=== PATIENT | female | born 2005 | race Caucasian/White ===

== ENCOUNTER 2025-01-18 10:51 | Emergency (ER) | payer OTHER, SELFPAY ==
[2025-01-18 11:01] VITALS: BP 134/71; PULSE 105; RESP 16; TEMP 36.9; O2SAT 97
--- NOTE | 2025-01-18 11:40 | ED.URI ---
HPI - URI/Sore Throat General Chief Complaint: Upper Respiratory Infection Stated Complaint: fever, GALE Time Seen by Provider: 01/18/25 11:16 History of Present Illness HPI Narrative: 19-year-old female with no past medical history presents to the emergency department for URI symptoms and headache minimally for the past week. Patient states 1 week ago she had ?COVID symptoms? which reportedly consisted of sore throat, body aches, chills, fever. She states her symptoms resolved at the end of last until she developed a headache that lasted for 1 day and self-resolved. She states over the past day her headache and fever has returned. States she woke up this morning with 101 degree fever but is not taking any antiemetics or pain medications prior to arrival. She states that headache is in the front of her head. She denies head injury trauma, vision changes, focal numbness or weakness. She is reporting associated photophobia and nausea. She is endorsing body aches but states her sore throat resolved. Denies cough, urinary symptoms or concern for . Related Data Allergies Allergy/AdvReac Type Severity Reaction Status Date / Time No Known Allergies Allergy Verified 01/18/25 11:50 Review of Systems Review of Systems: All systems reviewed & are unremarkable except as noted in HPI and below Exam Narrative: GENERAL: Well-appearing, well-nourished, and in no acute distress. HEAD: Normocephalic, atraumatic. EYES: PERRLA and EOMI. ENT: Nares clear, no rhinorrhea or epistaxis. Mucous membranes moist. Bilateral TMs are elena nonbulging with normal canals. Posterior pharynx without erythema or edema, no tonsillar hypertrophy or exudates. No dysphonia. No trismus. Patient tolerating secretions. NECK: Supple. No nuchal rigidity CHEST: Clear to auscultation. No respiratory distress. HEART: Regular rate and rhythm. No murmur heard. Normal peripheral pulses. ABDOMEN: Soft, nontender, nondistended, normal active bowel sounds. EXTREMITIES: Normal range of motion. No edema. SKIN: Warm, dry, no rash. NEURO: No focal deficits. Alert and oriented x4. Cranial nerves 2-12 intact. Strength 5/5 in BUE and BLE. Sensation intact throughout. Normal [id number]. No pronator drift. Course Vital Signs Vital signs: Vital Signs Temperature 98.4 F 01/18/25 11:01 Pulse Rate 105 H 01/18/25 11:01 Respiratory Rate 16 01/18/25 11:01 Blood Pressure 134/71 01/18/25 11:01 Pulse Oximetry 97 01/18/25 11:01 Oxygen Delivery Room Air 01/18/25 11:01 Temperature 98.4 F 01/18/25 11:01 Pulse Rate 105 H 01/18/25 11:01 Respiratory Rate 16 01/18/25 11:01 Blood Pressure 134/71 01/18/25 11:01 Pulse Oximetry 97 01/18/25 11:01 Oxygen Delivery Room Air 01/18/25 11:32 MDM - URI/Sore Throat MDM Narrative Medical decision making narrative: 19-year-old female with no past medical history presents emergency department for intermittent URI symptoms and headaches over the past week. See HPI for further history. The patient states she had a fever 101 this morning but has not taken any antiemetics or pain medications. On arrival she is afebrile. She has a mild tachycardia 105. She is nontoxic appearing. No meningismus signs. She is neurovascularly intact without focal deficits. Given patient has been urgent care had negative viral swabs, I did offer to obtain lab work and provide IV fluids. Patient politely declined and states she does not want an IV at this time. She would like to start with oral medications. Will also repeat viral testing as well. COVID, flu RSV are negative. Patient received IM Toradol, Tylenol, Compazine and Benadryl with improvement. She is tolerating p.o. intake and resting comfortably. Will discharge her home with PCP follow-up. I did discuss strict ED return precautions. She is agreeable with the plan verbalized understanding. Discharged in stable condition. Lab Data Labs: Lab Results 01/18/25 Range/Units 11:44 Influenza A (RT-PCR) Negative (Negative) Influenza B (RT-PCR) Negative (Negative) RSV (RT-PCR) Negative (Negative) SARS-CoV-2 RNA (RT-PCR) Negative (Negative) Discharge Plan Discharge Clinical Impression: Upper respiratory infection Qualifiers: URI type: unspecified viral URI Qualified Code(s): J06.9 - Acute upper respiratory infection, unspecified Headache Qualifiers: Headache type: unspecified Headache chronicity pattern: acute headache Intractability: not intractable Qualified Code(s): R51.9 - Headache, unspecified Patient Disposition: Home Condition: Stable Instructions: Antibiotic Form, Upper Respiratory Infection (DC), Acute Headache (DC) Additional Instructions: You tested negative for COVID, flu RSV. Please make sure to take Tylenol ibuprofen as needed for headaches, drink plenty fluids including water, Gatorade and Pedialyte. Follow-up closely with primary care provider and referred you to. Return to the emergency department if you develop new or worsening symptoms. Patient Language: Belarusian Prescriptions: New acetaminophen 500 mg capsule 500 mg PO Q6H PRN (Reason: pain) Qty: 14 0RF ibuprofen 800 mg tablet 800 mg PO TID PRN (Reason: pain) Qty: 20 0RF Follow-up/Referrals: Atul Hernandez MD [Physician] - PHYSICIAN NOT ON STAFF,NONSTAFF [Non-Staff] -
[2025-01-18] MEDS: ACETAMINOPHEN 500 MG TABLET 1000 MG PO (11:51)
[2025-01-18] MEDS: diphenhydrAMINE HCl CAP 25 MG CAPSULE PO (11:52)
[2025-01-18] MEDS: KETOROLAC 30 MG/ML VIAL (*BKC) IM (11:55)
--- OUTSIDE RECORDS SUMMARY | 2025-01-18 12:10 | XMS_ITS | Clinical Summary ---
Author Organization [address] [address] Care Team Providers Care Technical Spec Name Role Phone Unknown, Notinfile Primary Care Provider Unavail able Allergies No known active allergies Medications No known medications Active Problems No known active problems Encounters Date Type Department Care Team Description 01/16/2025 6:15 PM CDT Office Visit [facility] at [address] [address] Norah Galarza NP Acute viral syndrome (Primary Dx); Acute nonintractable headache, unspecified headache type from Last 3 Months Social History Tobacco Use Types Packs/Day Years Used Date Smoking Tobacco: Never Assessed Comments Unknown Sex and Gender Information Value Date Recorded Sex Assigned at Not on file Legal Sex Female 2:37 PM CDT Gender Identity Not on file Sexual Orientation Not on file Last Filed Vital Signs Vital Sign Reading Time Taken Comments Blood Pressure 139/88 01/16/2025 5:15 PM CDT Pulse 66 01/16/2025 5:15 PM CDT Temperature 37 C (98.6 F) 01/16/2025 5:15 PM CDT Respiratory Rate 20 01/16/2025 5:15 PM CDT Oxygen Saturation 99% 01/16/2025 5:15 PM CDT Inhaled Oxygen Concentration - - Weight 102.7 kg (226 lb 6.4 oz) 01/16/2025 5:15 PM CDT Height - - Body Mass Index - - Plan of Treatment Health Maintenance Due Date Last Done Comments Cervical Cancer Screening 2003 Depression Screening 2003 Hepatitis C Screening 2003 HPV Vaccines (1 - 3-dose series) 2018 Regular Well Visit/Exam 18-64 2021 Meningococcal B Vaccine (2 o f 2 - Bexsero SCDM 2-dose series) 08/04/2022 02/01/2022 Influenza Vaccine (#1) 2025 06/10/2012 DTaP/Tdap/Td Vaccine (7 - Td or Tdap) 02/02/2032 02/01/2022, 04/30/2007, 11/22/2005, Additional history exists Hepatitis B Screening Completed 2003 , 2003, 2003, Additional history exists Pneumococcal vaccine <65 Completed 005, 04/27/2004, 2003, Additional history exists Varicella Vaccines Completed 09/04/2007, 04/27/2004 Meningococcal Vaccine Completed 2021 Procedures Procedure Name Priority Date/Time Associated Diagnosis Comments POC INFLUENZA A/B, COVID-19 ANTIGEN Routine 01/16/2025 5:32 PM CDT Acute viral syndrome from Last 3 Months Results * POC Influenza A/B, COVID-19 antigen (01/16/2025 5:32 PM CDT) Influenza A Ag, POC Negative Negative [facility] Influenza B Ag, POC Negative Negative [facility] COVID-19 Ag POC Presumptive Negative Presumptive Negative, Invalid [facility] Nasal 01/16/2025 5:32 PM CDT Norah Galarza NP POINT OF CARE TEST ORDERAB LES Final Result [facility] [address] [place] [address] from Last 3 Months Insurance [employer] [facility] CLAIMS Care Teams Technical Spec Relationship Specialty Start Date End Date Unknown, Notinfile PCP - General 01/16/25
--- OUTSIDE RECORDS SUMMARY | 2025-01-18 12:10 | XMS_ITS | Referral Summary ---
Author Organization [address] [address] Care Team Providers Care Underwriting Clerk Name Role Phone Unknown, Notinfile Primary Care Provider Unavail able Encounters Date Type Department Care Team Description 01/16/2025 6:15 PM CDT Office Visit [facility] at [address] [address] Norah Galarza NP Acute viral syndrome (Primary Dx); Acute nonintractable headache, unspecified headache type from Last 3 Months Allergies No known active allergies Medications No known medications Active Problems No known active problems Social History Tobacco Use Types Packs/Day Years [...] Mass Index - - Plan of Treatment Not on file Procedures Procedure Name Priority Date/Time Associated Diagnosis Comments POC INFLUENZA A/B, COVID-19 ANTIGEN Routine 01/16/2025 5:32 PM CDT Acute viral syndrome from Last 3 Months Results * POC Influenza A/B, COVID-19 antigen (01/16/2025 5:32 PM CDT) Influenza A Ag, POC Negative Negative [facility] Influenza B Ag, POC Negative Negative [facility] COVID-19 Ag POC Presumptive Negative Presumptive Negative, Invalid [facility] Nasal 01/16/2025 5:32 PM CDT Norah Galarza PLATFORM SUPERVISOR POINT OF CARE TEST ORDERAB LES Final Result [facility] [place] [address], [facility] from Last 3 Months Insurance [employer] [facility] CLAIMS Care Teams Underwriting Clerk Relationship Specialty Start Date End Date Unknown, Notinfile PCP - General 01/16/25
--- OUTSIDE RECORDS SUMMARY | 2025-01-18 12:10 | XMS_ITS | Clinical Summary ---
Author Organization [facility] Address [address] [place] [address] Phone Care Team Providers Care Emulsion Coater Name Role Phone Jorge Lomeli MD Primary Care Provider [phone] Allergies No known active allergies Medications Selenium Sulfide 2.25 % Shampoo 1 application on the skin as directed PRN Active montelukast (SINGULAIR) 10 MG Tablet Take 1 Tablet by mouth every evening. 90 Tablet 1 2 Active fluticasone (Flovent HFA) 110 MCG/ACT Aerosol take 2 Puffs by inhalation 2 times daily. 1 g 1 2 Active Ventolin HFA 108 (90 Base) MCG/ACT Aerosol Solution take 2 Puffs by inhalation every 4 hours as needed for Wheezing or Cough. 1 g 2 Active Active Problems No known active problems Resolved Problems Problem Noted Date Diagnosed Date Resolved Date Acute bronchitis 10/09/2020 Acute bilateral otitis media 10/09/2020 URI, acute 10/09/2020 Pharyngitis 10/09/2020 Sinusitis 10/09/2020 Sprain of right ankle 2020 Immunizations Immunization Administration Dates Next Due DTAP VACCINE 04/30/2007, 6,11/06/2004,09/01,2003 HIB Vaccine (PRP-T) 04/27/2004,2003,2003 Hepatitis A Vaccine 04/30/2007 Hepatitis B Vaccine 2003, 4,2003,04/25 Inactivated Polio Vaccine 04/30/2007,07/2003,2003,07/04 Influenza Vaccine greater than 3 yrs 06/10/2012 Influenza, Seasonal, Injecta ble, Undefined 06/10/2012 MMR Vaccine 04/30/2007,04/27/2004 Meningococcal Group B OMV 02/01/2022 Meningococcal Vaccine 2021 Pneumococcal Vaccine Peds - 7 Valent ,04/27/2004,2003,07/04 TB Skin Test 12/19/2020 TDAP Vaccine 02/01/2022 Varicella Vaccine Live 09/04/2007,04/27/2004 Family History Medical History Relation Name Comments Asthma Father Asthma Sister Relation Name Status Comments Father Alive Sister Alive Social History Tobacco Use Types Packs/Day Years Used Date Smoking Tobacco: Never Smokeless Tobacco: Never Tobacco Cessation:Counseling Given: Not Answered Alcohol Use Standard Drinks/Week Comments No 0 (1 standard drink = 0.6 oz pur e alcohol) PHQ-2 Answer Date Recorded Total Score - Questions 1-9 0 06/23 Sexually Active Control Partners Comments Not Currently Comments No Sex and Gender Information Value Date Recorded Sex Assigned at Not on file Legal Sex Female 3:40 PM CDT Gender Identity Not on file Sexual Orientation Not on file Last Filed Vital Signs Vital Sign Reading Time Taken Comments Blood Pressure 126/80 05/21/2022 11:25 AM RESIDENT PROGRAMS ASSISTANT Pulse 81 05/21/2022 11:25 AM RESIDENT PROGRAMS ASSISTANT Temperature 36.1 C (97 F) 05/21/2022 11:25 AM RESIDENT PROGRAMS ASSISTANT Respiratory Rate 18 05/21/2022 11:2 5 AM RESIDENT PROGRAMS ASSISTANT Oxygen Saturation 96% 05/21/2022 11: 25 AM RESIDENT PROGRAMS ASSISTANT Inhaled Oxygen Concentration - - Weight 95.7 kg (210 lb 14.4 oz) 022 11:25 AM RESIDENT PROGRAMS ASSISTANT Height 173.4 cm (5' 8.25) 05/21/2022 1 1:25 AM RESIDENT PROGRAMS ASSISTANT Body Mass Index 31.83 05/21/2022 11:25 AM RESIDENT PROGRAMS ASSISTANT Plan of Treatment Health Maintenance Due Date Last Done Comments Hepatitis C Virus (HCV) Screening 2003 Human Papillomavirus (HPV) Immunization (1 - 3-dose series) 2018 Meningococcal B Immunization (2 of 2 - Bexsero SCDM 2-dose series) 08/04/2022 02/01/2022 SARS-COV-2 Immunization (1 - season) 2024 Pap Smear 2024 Influenza Immunization (#1) 2025 06/10/2012, 1 08/11/2011 DTaP/Tdap/Td Immunization (7 - Td or Tdap) 02/02/2032 02/01/2022, 04/30/2007, 11/22/2005, Additional history exists Respiratory Syncytial Virus (RSV) Immunization (Adult) (1 - 1-dose 75+ series) 2078 Hepatitis B Immunization Completed 004, 2003, 2003, Additional history exists Pneumococcal Immunization Combined Aged Out 11/06/2004, 04/27/2004, 2003, Additional history exists No longer eligible based on patient's age to complete this topic Measles Mumps Rubella (MMR) Immunization Discontinued 04/30/2007, 04/27/2004 Polio (IPV) Immunization Discontinued 007, 2003, 2003, Additional history exists Varicella Immunization Discontinued 09/04/2007, 2003 Hepatitis A Immunization Discontinued 10/26/2007, 01/2007 Meningococcal Immunization (ACWY) Completed 2021 Rotavirus Immunization Aged Out No lo nger eligible based on patient's age to complete this topic Insurance [place] Care Teams Emulsion Coater Relationship Specialty [place] [address] [place] [address] PCP - General Internal Medicine 08/05/16
[2025-01-18 12:25] LABS: Influenza A QL RT-PCR Negative (Negative); Influenza B QL RT-PCR Negative (Negative); RSV RNA, RT-PCR Negative (Negative); SARS-CoV-2 RNA PCR Negative (Negative)
[2025-01-18] MEDS: PROCHLORPERAZINE MALEATE 5 MG TABLET 10 MG PO (12:33)
[2025-01-18 13:07] VITALS: BP 122/73; PULSE 76; RESP 16; TEMP 36.9; O2SAT 99
== END 2025-01-18 13:09 | disposition home or self-care (01) ==
PROVIDERS: Emergency Provider Physician Assistant
DX: J06.9 Acute upper respiratory infection, unspecified (principal); R51.9 Headache, unspecified; Z20.822 Contact with and (suspected) exposure to COVID-19
CPT/HCPCS: 87637; 96372; 99283; A9270; J1885